=== PATIENT | male | born 1980 | race Caucasian/White ===

== ENCOUNTER 2024-09-02 07:04 | Emergency (ER) | payer SELFPAY ==
[2024-09-02 07:06] VITALS: BP 128/88; PULSE 66; RESP 18; TEMP 36.6; O2SAT 100; BMI 25.7
--- NOTE | 2024-09-02 07:10 | EDS_ITS ---
HPI History of Present Illness Chief Complaint: General Illness Informant: patient Onset/Context/Timing Onset: Yesterday Context: Gradual Onset Timing: Continuous Quality: Cramping Location: Epigastric area Worsened by: Eating, smoking Relieved by: Nothing Narrative Narrative: Patient presents with upper respiratory congestion that has been getting worse over the last 3 days. Patient states that his been taking opot-[id number] decongestants which has caused his gastroesophageal reflux disease to flareup. Patient states he has been having some cramping over the epigastric area. Patient states this is worse with eating. Patient states it is gradually gotten worse. Patient admits to a low-grade fever of 100.6. Patient also admits to a sore throat and some pain in his ears. Patient states several family members have been having similar upper respiratory symptoms. Patient denies any nausea or vomiting. [facility] Medical History GERD (gastroesophageal reflux disease) Home Medications ?Medication ?Instructions ?Recorded ?Last Taken ?Type omeprazole 20 mg capsule,delayed 20 mg PO DAILY #30 CAPSULES 09/02/24 Unknown Rx release Allergy/AdvReac Type Severity Reaction Status Date / Time phenobarbital Allergy PT UNSURE Verified 09/02/24 07:05 OF REACTION Family History no significant family his Surgical History no surgical history no surgical history Social History (Updated 09/02/24 @ 07:[address] Marcel aEgle DO) Smoking Status: Current every day smoker tobacco type: cigarettes ROS ROS ED Constitutional Constitutional ED: Reports fever(s); Denies chills Eyes Eyes: Denies blurry vision or change in vision ENT ENT ED: Reports ear pain bilateral (Popping sensation) and sore throat; Denies rhinorrhea Cardiovascular Cardiovascular: Denies chest pain or palpitations Respiratory/Chest Respiratory/Chest: Reports dyspnea; Denies cough Gastrointestinal Gastrointestinal: Reports abdominal pain; Denies nausea or vomiting Genitourinary Genitourinary ED: Denies dysuria or hematuria Musculoskeletal Musculoskeletal: Denies back pain or neck pain Integumentary Denies abscess or rash Neurologic Neurologic: Denies headache(s) or weakness Allergic/Immunologic Allergic/Immunologic ED: Denies mouth swelling or urticaria EXAM Physical Exam Const Vital Signs: 09/02/24 07:06 Temperature 97.8 F Temperature Source Oral Pulse Rate 66 Respiratory Rate 18 Blood Pressure 128/88 H Blood Pressure Mean 101 Pulse Ox 100 Oxygen Delivery Method Room Air Positive well nourished and well developed General Appearance ED: well developed and NAD HEENT Reports moist mucous membranes Neck supple and no JVD Resp normal respiratory effort and clear to auscultation bilaterally Cardio regular rate and regular rhythm GI non-distended Palpation: soft and tender epigastric; Negative for guarding or rebound tenderness present Neuro oriented x3, CN's II-XII intact bilaterally and no sensory deficits noted Sensorium / Orientation: alert Motor Exam: strength 5/5 throughout Psych mental status grossly normal MDM MDM MDM Narrative Medical decision making narrative: Differential diagnosis includes gastroesophageal reflux disease, gastritis, and viral upper respiratory infection. Patient was given a GI cocktail. Treatment and Re-Evaluation :: Patient felt better after GI cocktail. Patient was given a prescription for omeprazole. Patient was given a referral for primary care physician. Patient was instructed to follow-up in 5 to 7 days. Patient understood and was agreeable with the plan. All questions were answered. Discharge Plan Triage Chief Complaint: General Illness ED Provider: Marcel Eagle Dx/Rx/DC Orders Clinical Impression: Gastroesophageal reflux disease, Viral upper respiratory tract infection Instructions: ED GERD (Adult), ED URI, Viral, No Abx (Adult) Prescriptions: New omeprazole 20 mg capsule,delayed release(DR/EC) 20 mg PO DAILY Qty: 30 0RF Primary Care Provider: Care Physician,No Primary Referrals: Abby Prieto MD [Med Staff - [facility]] - 5-7 Days Care Physician,No Primary [Primary Care Provider] - Print Language: Emirati Disposition Disposition: Home, Self Care
[2024-09-02] MEDS: Mag Hydrox/Al Hydrox/Simeth 30 ML UDC PO (07:37)
[2024-09-02] MEDS: Lidocaine 2% Viscous15 ML UDC 15 ML PO (07:37)
== END 2024-09-02 08:14 | disposition home or self-care (01) ==
PROVIDERS: Emergency Provider Emergency Medicine; Visit Provider Emergency Medicine
DX: K21.9 Gastro-esophageal reflux disease without esophagitis (principal); J06.9 Acute upper respiratory infection, unspecified; F17.210 Nicotine dependence, cigarettes, uncomplicated
CPT/HCPCS: 99282

== ENCOUNTER 2024-10-24 11:58 | Emergency (ER) | payer SELFPAY ==
[2024-10-24 12:00] VITALS: BP 132/88; PULSE 71; RESP 18; TEMP 36.6; O2SAT 100; BMI 24.8
--- NOTE | 2024-10-24 12:23 | RAD_ITS ---
HISTORY: chest pain. TECHNIQUE: XR Chest 1 View. COMPARISON: None. FINDINGS: CARDIOMEDIASTINAL BORDERS: Cardiac silhouette within normal limits in size. Mediastinal contour unremarkable. LUNGS: Very mild linear bibasilar opacities. PLEURA: No pleural effusion or pneumothorax seen. OSSEOUS STRUCTURES: Unremarkable. RAD/Chest 1 View (Portable) IMPRESSION: Very mild by basilar atelectasis. Electronically Signed: Melinda Champion MD at 13:49 EST ,
--- NOTE | 2024-10-24 12:23 | EKG12_ITS ---
Test Reason : DIZZY Blood Pressure : */* mmHG Vent. Rate : 67 BPM Atrial Rate : 67 BPM P-R Int : 152 ms QRS Dur : 108 ms QT Int : 394 ms P-R-T Axes : 36 -29 65 degrees QTcB Int : 416 ms Normal sinus rhythm Incomplete right bundle branch block Borderline ECG Confirmed by MARLEN DEY, CODY ([id number]), brands editor VERONIKA GRADY ([id number]) on 10/26/2024 7:59:52 AM Referred By: Confirmed By: CODY GEE MD
--- NOTE | 2024-10-24 12:24 | EX.ED.DYSGE1 ---
HPI History of Present Illness Chief Complaint: Dizziness Informant: patient Narrative Narrative: 44-year-old male presenting to the emergency room with a constellation of complaints. He states that he has been recently assessed in another emergency department has follow-up with primary care as well as ophthalmology. Patient states that he has developed recurrent pain in the left wrist and elbow which he was told was arthritis. He notes a frontal headache he states he sees some white spots on his tongue and on his teeth and wonders if he has thrush. He notes chest discomfort and feels like passing out. He notes a cough in the mornings with sputum. Patient states that he came to the emergency department because of the feeling that he may pass out. He describes a vague chest discomfort mid chest onto the left side. No recent change in exercise tolerance. Patient notes that he had been taking in the past Protonix and omeprazole prescribed by the ED for reflux. He states he takes it for 2 weeks and it does a good job within the prescription runs out. Until recently he has not had a primary care doctor/health insurance. He does wonder if his reflux is acting up causing the symptoms today. [facility] Medical History GERD (gastroesophageal reflux disease) Home Medications ?Medication ?Instructions ?Recorded ?Last Taken ?Type omeprazole 20 mg capsule,delayed 20 mg PO DAILY #30 CAPSULES 09/02/24 Unknown Rx release pantoprazole 20 mg tablet,delayed 20 mg PO DAILY #30 tabs 10/24/24 Unknown Rx release (Protonix) Allergy/AdvReac Type Severity Reaction Status Date / Time phenobarbital Allergy PT UNSURE Verified 10/24/24 12:00 OF REACTION Social History Smoking Status: Current every day smoker tobacco type: cigarettes ROS ROS ED Constitutional Constitutional ED: Reports other Details: Weight gain ; Denies chills, fever(s) or weight loss Eyes Eyes: Denies change in vision or diplopia ENT ENT ED: Reports other Details: Sore throats occasionally usually in the morning. ; Denies ear pain or rhinorrhea Cardiovascular Cardiovascular: Reports chest pain; Denies orthopnea, palpitations or racing heartbeat Respiratory/Chest Respiratory/Chest: Reports cough and sputum; Denies dyspnea or orthopnea Gastrointestinal Gastrointestinal: Denies abdominal pain, diarrhea, nausea or vomiting Genitourinary Genitourinary ED: Denies dysuria, hematuria or urinary frequency Musculoskeletal Musculoskeletal: Reports arthralgias; Denies myalgias Integumentary Denies abscess or rash Neurologic Neurologic: Reports paresthesias; Denies headache(s) or weakness Psychiatric Psychiatric: Denies anxiety, depression, suicidal ideation or suicidal thoughts Endocrine Endocrinology: Denies polydipsia, polyphagia or polyuria Allergic/Immunologic Allergic/Immunologic ED: Denies mouth swelling, tongue swelling or urticaria EXAM Physical Exam Const Vital Signs: 10/24/24 12:00 Temperature 97.9 F Temperature Source Oral Pulse Rate 71 Respiratory Rate 18 Blood Pressure 132/88 H Blood Pressure Mean 102 Pulse Ox 100 Oxygen Delivery Method Room Air Positive well nourished and well developed General Appearance ED: well developed and NAD HEENT Reports normocephalic, head/scalp atraumatic and moist mucous membranes Eyes PERRL and EOMs intact bilaterally Neck no lymphadenopathy, supple and no JVD Resp normal respiratory effort and clear to auscultation bilaterally Cardio regular rate, regular rhythm and no murmurs GI normal to inspection, nondistended, normoactive bowel sounds and non-tender Palpation: soft Back/Spine no CVA tenderness and normal ROM Extremity normal to inspection General Extremety ED: Negative for edema General Extremity: Negative for edema Neuro oriented x3 and CN's II-XII intact bilaterally Sensorium / Orientation: alert Motor Exam: strength 5/5 throughout Psych mental status grossly normal Mood & Affect: Negative for depressed or tearful Skin no rashes or lesions noted and no wounds MDM MDM MDM Narrative Medical decision making narrative: Differential diagnosis includes bilateral to syncope near syncope acute coronary syndrome pulmonary embolism aortic dissection anxiety electrolyte abnormality dehydration anemia My independent interpretation of the chest x-ray is no acute process. EKG is in normal sinus rhythm with no definitive findings of acute coronary syndrome. Troponin is negative D-dimer is within normal limits. BMP liver enzymes within normal limits not anemic white count 10.6. Clinically I think the patient had a vasovagal near syncopal reaction due to the chest pain/GERD. Placing him on Protonix daily. Would encourage him to follow-up. He understands that if he does have a systemic rheumatologic condition that this is a long outpatient evaluation until diagnosis. History & Record Review Discussion w/independent historian: Patient Lab Data Attestation: I reviewed the patient's lab results. Labs: Laboratory Results - last 24 hr 10/24/24 10/24/24 12:31 12:52 WBC 10.6 RBC 5.27 Hgb 16.2 Hct 48.2 MCV 91.5 MCH 30.7 MCHC 33.6 RDW Std Deviation 48.9 H RDW Coeff of Marta 14.5 Plt Count 172 MPV 10.2 Immature Gran % (Auto) 0.500 Neut % (Auto) 69.3 Lymph % (Auto) 21.3 Hamilton % (Auto) 6.4 Eos % (Auto) 2.0 Baso % (Auto) 0.5 Absolute Neuts (auto) 7.3 Absolute Lymphs (auto) 2.25 Nucleated RBC % 0 D-Dimer Quant (PE/DVT) 0.32 Sodium 137 Potassium 4.0 Chloride 102 Carbon Dioxide 30.0 Anion Gap 5 BUN 11 Creatinine 0.99 Estim Creat Clear Calc 106.49 Est GFR (MDRD) Af Amer 106 Est GFR (MDRD) Non-Af 87 BUN/Creatinine Ratio 11.2 Glucose 92 Calcium 9.6 Total Bilirubin 0.50 Direct Bilirubin 0.16 AST 16 ALT 19 Alkaline Phosphatase 63 Troponin I High Sens < 3 L Total Protein 6.8 Albumin 3.9 Globulin 2.9 EKG Initial EKG: Attestation: I personally reviewed and interpreted this EKG as follows: Comments: Normal sinus rhythm ventricular rate of 67 bpm. Incomplete right bundle branch block is suggested. Discharge Plan Triage Chief Complaint: Dizziness Other Complaint: General Illness ED Provider: Seun Cai Dx/Rx/DC Orders Clinical Impression: GERD (gastroesophageal reflux disease), Chest pain, Vasovagal near syncope Instructions: ED GERD (Adult), ED Near-Fainting- Vagal Reaction Prescriptions: New pantoprazole [Protonix] 20 mg tablet,delayed release (DR/EC) 20 mg PO DAILY Qty: 30 0RF No Action omeprazole 20 mg capsule,delayed release(DR/EC) 20 mg PO DAILY Qty: 30 0RF Primary Care Provider: Care Physician,No Primary Referrals: Care Physician,No Primary [Primary Care Provider] - Activity Restrictions/Additional Instructions: Be sure to keep your follow-up appointments with primary care and your eye doctor. Print Language: Turkish Disposition Disposition: Home, Self Care
[2024-10-24 12:39] LABS: Absolute Lymphocyte Count 2.25 X10^3/uL (0.83-4.51); Absolute Neutrophil Count 7.3 X10^3/uL (2.0-7.7); Basophil# 0.05 X10^3/uL; Basophil% 0.5 % (0-1); Eosinophil# 0.21 X10^3/uL; Hematocrit 48.2 % (40-54); Hemoglobin 16.2 g/dL (13.0-16.5); Lymphocyte # 2.25 X10^3/ul (0.83-4.51); Lymphocyte % 21.3 % (19-41); Mean Corp Hgb Conc 33.6 g/dL (32-36); Mean Corpuscular Hgb 30.7 pg (27.0-32.0); Mean Corpuscular Volume 91.5 fL (80-94); Mean Platelet Vol. 10.2 fl (6.2-12.0); Monocyte# 0.68 X10^3/uL; Monocyte% 6.4 % (0-10); NRBC Flagged by Analyzer 0 % (0-5); Neutrophil # 7.33 X10^3/uL (2.7-7.7); Neutrophil % 69.3 % (47-70); Platelet Count 172 K/mm3 (150-450); RBC Distribution Width CV 14.5 % (11.6-14.6); RBC Distribution Width SD 48.9 fl (35.1-43.9); Red Blood Count 5.27 M/mm3 (4.6-6.2); White Blood Count 10.6 K/mm3 (4.4-11.0)
[2024-10-24 13:02] LABS: AST(SGOT) 16 U/L (15-37); Alanine Aminotransfer ALT/SGPT 19 U/L (16-61); Albumin, Serum 3.9 g/dL (3.2-5.0); Alkaline Phosphatase 63 U/L (45-117); Anion Gap 5 (5-15); BUN 11 mg/dL (7-18); BUN/Creat Ratio 11.2 RATIO (10-20); Bilirubin, Direct 0.16 mg/dL (0.00-0.30); Calcium,Total 9.6 mg/dL (8.5-10.1); Chloride 102 mmol/L (98-107); Creatinine, Serum 0.99 mg/dL (0.70-1.30); EST Glomerular Filtration Rate 87 mL/min (>60); Est Glom Filt Rate - Afr Amer 106 mL/min (>60); Estimated Creatinine Clearance 106.49 ml/min; Globulin 2.9 g/dL (2.2-4.2); Glucose 92 mg/dL (74-106); Protein, Total 6.8 g/dL (6.4-8.2); Sodium Level 137 mmol/L (136-145); Troponin-I HS < 3 pg/mL (3.0-78.0)
[2024-10-24 13:12] LABS: D-Dimer Quantitative (DVT/PE) 0.32 FEU/ug/m (0.27-0.49)
[2024-10-24 13:43] VITALS: BP 128/90; PULSE 66; RESP 16; TEMP 36.9; O2SAT 98
== END 2024-10-24 13:51 | disposition home or self-care (01) ==
PROVIDERS: Emergency Provider Emergency Medicine; Visit Provider Emergency Medicine
DX: K21.9 Gastro-esophageal reflux disease without esophagitis (principal); R07.9 Chest pain, unspecified; R42 Dizziness and giddiness; F17.210 Nicotine dependence, cigarettes, uncomplicated; R20.2 Paresthesia of skin; R51.9 Headache, unspecified; Z79.899 Other long term (current) drug therapy
CPT/HCPCS: 71045; 80048; 80076; 84484; 85025; 85379; 93005; 99285; A4216